=== PATIENT | male | born 1980 | race Two or more races ===

== ENCOUNTER 2020-12-27 10:14 | Emergency (ER) | payer MEDICAID, OTHER ==
[~2020-12-27] VITALS: Ht 152.4 cm; Wt 83.9 kg
[2020-12-27 10:14] VITALS: BP 139/85
[2020-12-27] MEDS ORDERED: ASPirin 81 mg TAB PO ONE (10:30)
== END 2020-12-27 11:00 | disposition left against medical advice (07) ==
LOC: ER 10:14
DX: R07.89 Other chest pain (principal); E11.9 Type 2 diabetes mellitus without complications; E78.5 Hyperlipidemia, unspecified; I10 Essential (primary) hypertension
CPT/HCPCS: 93005

== ENCOUNTER 2021-08-18 00:50 | Inpatient (IN) | payer MEDICAID ==
[~2021-08-18] VITALS: Ht 172.7 cm; Wt 96.0 kg
[2021-08-18] MEDS ORDERED: BENZ100C19 PO (05:59)
[2021-08-18] MEDS ORDERED: GUAI600T23 PO (05:59)
[2021-08-18] MEDS ORDERED: ALBUAER3 IN (05:59)
[2021-08-18] MEDS ORDERED: ZINC100T5 PO (05:59)
[2021-08-18] MEDS ORDERED: AZITHROMYCIN 250 MG TAB PO ONE (13:30)
[2021-08-18] MEDS ORDERED: cefTRIAXone 1GM/50ML D5W 50 ML IV ONE (13:30)
[2021-08-18] MEDS ORDERED: SODIUM CHLORIDE 0.9% 1,000 ML IV ONE ×2 (13:30→16:00)
[2021-08-18 15:02] LABS: Basophils # (auto) 0 10 ^3/uL (0-0.2); Basophils % (auto) 0.8 % (0.0-2.0); Eosinophils # (auto) 0 10 ^3/uL (0-0.8); Eosinophils % (auto) 0.5 % (0.0-7.0); Hematocrit 42.1 % (41.0-53.0); Hemoglobin 14.8 g/dL (13.5-17.5); Lymphocytes # (auto) 1.2 10 ^3/uL (0.4-5.4); Mean Corpuscular Hemoglobin 33.2 pg (28.0-32.0); Mean Corpuscular Volume 94.7 fL (80.0-100.0); Monocytes # (auto) 0.5 10 ^3/uL (0-1.3); Monocytes % (auto) 12.3 % (0.0-12.0); Neutrophils # (auto) 2.1 10 ^3/uL (1.6-8.6); Neutrophils % (auto) 54.4 % (37.0-80.0); Nucleated Red Blood Cells % 0.3 %; Red Blood Cells 4.45 10^6/uL (4.5-5.90); White Blood Cell 3.9 10^3/uL (4.4-10.8)
[2021-08-18 15:15] LABS: Calcium 8.2 mg/dL (8.5-10.1); Potassium 3.8 mmol/L (3.5-5.1)
[2021-08-18 15:20] LABS: BUN/Creatinine Ratio 16.5; Bilirubin, Total 0.4 mg/dL (0.2-1.0); Total Protein 7.3 g/dL (6.4-8.2)
[2021-08-18] MEDS ORDERED: MORPHINE SULFATE INJECTION 2 MG/ML SYRG IV PRN ×2 (16:00→17:00)
[2021-08-18] MEDS ORDERED: DOCUSATE CALCIUM 240 MG CAP PO PRN (16:00)
[2021-08-18] MEDS ORDERED: LABETALOL HCL 5 MG/ML 4ML SYRINGE IV PRN (16:00)
[2021-08-18] MEDS ORDERED: ONDANSETRON HCL 4 MG/2 ML VIAL IV PRN (16:00)
[2021-08-18] MEDS ORDERED: REMDESIVIR PER PHARMACY 0 ML IV SCH (16:00)
[2021-08-18] MEDS ORDERED: DEXTROSE (50%) 50ML SYRG IV PRN (16:00)
[2021-08-18] MEDS ORDERED: NITROGLYCERIN 0.4 MG SL TAB SL PRN (17:00)
[2021-08-18] MEDS ORDERED: REMDESIVIR 200 MG in NS 210ml LOADING DOSE ADULT IV ONE (18:00)
[2021-08-18] MEDS: ACCU-CHEK COMFORT CURVE STRIP VI SCH ×3 (18:33→23:48)
[2021-08-18] MEDS: InsuLIN REG 1unit/0.01ml Soln (100units/ml) SC SCH ×2 (18:33→20:04)
[2021-08-18] MEDS: CHOLECALCIFEROL (VITD3) 2,000 UNIT CAP/TAB PO SCH (18:34)
[2021-08-18] MEDS: DexAMETHasone SOD PHOS 10MG/1ML VIAL INJ IV SCH (18:34)
[2021-08-18] MEDS: ZINC SULFATE 220mg CAP or TAB PO SCH (18:34)
[2021-08-18] MEDS: ASCORBIC ACID 1,000 MG TAB PO SCH (18:36)
[2021-08-18] MEDS: BUDESONIDE (INHALATION) 180 MCG IH IN SCH (19:00)
[2021-08-18] MEDS: ALBUTEROL SULF HFA 90MCG INH 200DOSE IN PRN (19:52)
[2021-08-18 20:58] VITALS: BP 109/75
[2021-08-18] MEDS: ENOXAPARIN SOD 40 MG/0.4 ML SYRINGE SC SCH (21:58)
[2021-08-18 22:00] VITALS: BP 109/75
[2021-08-18] MEDS ORDERED: INSULIN LANTUS (GLARGINE) 1 /0.01ml (100units/ml) SC SCH (22:00)
[2021-08-18] MEDS ORDERED: METF-372 PO (22:18)
[2021-08-18] MEDS ORDERED: LOSA-69 PO (22:18)
[2021-08-19] MEDS: InsuLIN REG 1unit/0.01ml Soln (100units/ml) SC SCH ×6 (00:03→20:14)
[2021-08-19] MEDS: ACCU-CHEK COMFORT CURVE STRIP VI SCH ×5 (04:42→20:07)
[2021-08-19 05:00] VITALS: BP 107/81
[2021-08-19] MEDS: BUDESONIDE (INHALATION) 180 MCG IH IN SCH ×2 (07:40→19:56)
[2021-08-19] MEDS: ALBUTEROL SULF HFA 90MCG INH 200DOSE IN PRN ×2 (07:40→19:56)
[2021-08-19 07:52] LABS: Hemoglobin 14.5 g/dL (13.5-17.5)
[2021-08-19 07:58] LABS: Hematocrit 42.3 % (41.0-53.0); Mean Corpuscular Hemoglobin 32.8 pg (28.0-32.0); Mean Corpuscular Hgb Conc. 34.3 g/dL (32.0-36.0); Mean Corpuscular Volume 95.5 fL (80.0-100.0); Red Blood Cells 4.43 10^6/uL (4.5-5.90); Red Cell Distribution Width 13.1 % (11.8-14.3)
[2021-08-19 08:10] LABS: Albumin 2.8 g/dL (3.4-5.0); Calcium 8.6 mg/dL (8.5-10.1); Potassium 4.3 mmol/L (3.5-5.1)
[2021-08-19 08:21] LABS: BUN/Creatinine Ratio 14.9; Bilirubin, Total 0.4 mg/dL (0.2-1.0); CRP High Sensitivity 3.95 mg/dL (< 0.3); Magnesium 2.4 mg/dL (1.6-2.6); Total Protein 6.4 g/dL (6.4-8.2)
[2021-08-19 08:46] LABS: Thyroid Stimulating Hormone 0.33 uIU/mL (0.358-3.74)
[2021-08-19 08:50] LABS: White Blood Cell 1.9 10^3/uL (4.4-10.8)
[2021-08-19 08:51] LABS: Basophils % (manual) 0 (0.0-2.0); Blast Cells 0; Eosinophils % (manual) 0 (0-7); Metamyelocytes % 0; Myelocytes % 0; Promyelocytes % 0; Reactive Lymphocytes 0
[2021-08-19 09:00] VITALS: BP 110/75
[2021-08-19] MEDS: DexAMETHasone SOD PHOS 10MG/1ML VIAL INJ IV SCH (10:28)
[2021-08-19] MEDS: ZINC SULFATE 220mg CAP or TAB PO SCH (10:29)
[2021-08-19] MEDS: CHOLECALCIFEROL (VITD3) 2,000 UNIT CAP/TAB PO SCH (10:29)
[2021-08-19] MEDS: ASCORBIC ACID 1,000 MG TAB PO SCH (10:29)
[2021-08-19] MEDS: PANTOPRAZOLE 40 MG TAB PO SCH (10:29)
[2021-08-19] MEDS: ENOXAPARIN SOD 40 MG/0.4 ML SYRINGE SC SCH ×2 (10:29→21:59)
[2021-08-19] MEDS: cefTRIAXone 1GM/50ML D5W 50 ML IV SCH (10:33)
[2021-08-19] MEDS: AZITHROMYCIN 500MG/ 250ML 250 ML IV SCH (10:33)
[2021-08-19] MEDS: INSULIN LANTUS (GLARGINE) 1 /0.01ml (100units/ml) SC SCH ×2 (11:26→21:59)
[2021-08-19 11:35] LABS: Band Neutrophils % (manual) 3; Lymphocytes % (manual) 26 (10.0-50.0); Monocytes % (manual) 13 (0-12)
[2021-08-19 12:00] LABS: Urine Bacteria NONE SEEN /hpf (None Seen); Urine Blood Negative /uL (Negative); Urine Mucus FEW (None Seen); Urine Specific Gravity 1.022 (1.001-1.035); Urine WBC 1 /hpf (0 - 3)
[2021-08-19] MEDS ORDERED: ERGOCALCIFEROL 50,000 UNIT(1.25MG) CAP PO SCH (12:00)
[2021-08-19 13:00] VITALS: BP 102/65
[2021-08-19] MEDS: REMDESIVIR 100mg 100 MG in SODIUM CHL 0.9% 230 ML IV SCH (15:16)
[2021-08-19 17:00] VITALS: BP 103/71
[2021-08-19 22:00] VITALS: BP 106/67
[2021-08-20] MEDS: ACCU-CHEK COMFORT CURVE STRIP VI SCH ×6 (00:38→21:02)
[2021-08-20] MEDS: InsuLIN REG 1unit/0.01ml Soln (100units/ml) SC SCH ×6 (00:40→21:03)
[2021-08-20] MEDS: ACETAMINOPHEN 500 MG TAB PO PRN ×2 (01:10→16:20)
[2021-08-20 05:00] VITALS: BP 102/68
[2021-08-20 07:20] LABS: Potassium 4.1 mmol/L (3.5-5.1)
[2021-08-20] MEDS: ALBUTEROL SULF HFA 90MCG INH 200DOSE IN PRN ×2 (07:25→20:58)
[2021-08-20] MEDS: BUDESONIDE (INHALATION) 180 MCG IH IN SCH ×2 (07:25→20:59)
[2021-08-20 07:30] LABS: Albumin 2.7 g/dL (3.4-5.0); Bilirubin, Total 0.4 mg/dL (0.2-1.0); Calcium 8.9 mg/dL (8.5-10.1); Total Protein 6.3 g/dL (6.4-8.2)
[2021-08-20] MEDS: cefTRIAXone 1GM/50ML D5W 50 ML IV SCH (08:41)
[2021-08-20 09:00] VITALS: BP 90/57
[2021-08-20] MEDS: DexAMETHasone SOD PHOS 10MG/1ML VIAL INJ IV SCH (09:30)
[2021-08-20] MEDS: CHOLECALCIFEROL (VITD3) 2,000 UNIT CAP/TAB PO SCH (09:30)
[2021-08-20] MEDS: ASCORBIC ACID 1,000 MG TAB PO SCH (09:30)
[2021-08-20] MEDS: AZITHROMYCIN 500MG/ 250ML 250 ML IV SCH (09:30)
[2021-08-20] MEDS: PANTOPRAZOLE 40 MG TAB PO SCH (09:30)
[2021-08-20] MEDS: ZINC SULFATE 220mg CAP or TAB PO SCH (09:31)
[2021-08-20] MEDS: ENOXAPARIN SOD 40 MG/0.4 ML SYRINGE SC SCH ×2 (09:48→21:39)
[2021-08-20 13:00] VITALS: BP 96/60
[2021-08-20] MEDS: REMDESIVIR 100mg 100 MG in SODIUM CHL 0.9% 230 ML IV SCH (14:32)
[2021-08-20 17:00] VITALS: BP 100/66
[2021-08-20] MEDS: INSULIN LANTUS (GLARGINE) 1 /0.01ml (100units/ml) SC SCH (21:23)
[2021-08-20 22:52] VITALS: BP 107/62
[2021-08-21] MEDS ORDERED: ACETAMINOPHEN 500 MG TAB PO PRN (02:15)
[2021-08-21] MEDS ORDERED: ONDANSETRON HCL 4 MG/2 ML VIAL ONE (02:15)
[2021-08-21] MEDS ORDERED: NITROGLYCERIN 0.4 MG SL TAB SL PRN (02:30)
[2021-08-21] MEDS ORDERED: ONDANSETRON HCL 4 MG/2 ML VIAL IV PRN (02:30)
[2021-08-21] MEDS ORDERED: DOCUSATE CALCIUM 240 MG CAP PO PRN (02:30)
[2021-08-21] MEDS ORDERED: DEXTROSE (50%) 50ML SYRG IV PRN (02:30)
[2021-08-21] MEDS ORDERED: MORPHINE SULFATE INJECTION 2 MG/ML SYRG IV PRN ×2 (02:30)
[2021-08-21] MEDS ORDERED: REMDESIVIR PER PHARMACY 0 ML IV SCH (02:30)
[2021-08-21] MEDS ORDERED: LABETALOL HCL 5 MG/ML 4ML SYRINGE IV PRN (02:30)
[2021-08-21] MEDS: ACCU-CHEK COMFORT CURVE STRIP VI SCH ×7 (04:07→23:51)
[2021-08-21] MEDS: InsuLIN REG 1unit/0.01ml Soln (100units/ml) SC SCH ×7 (04:12→23:52)
[2021-08-21 05:30] VITALS: BP 93/52
[2021-08-21] MEDS: ALBUTEROL SULF HFA 90MCG INH 200DOSE IN PRN ×2 (07:11→22:41)
[2021-08-21] MEDS: BUDESONIDE (INHALATION) 180 MCG IH IN SCH ×2 (07:11→22:41)
[2021-08-21 09:00] VITALS: BP 93/59
[2021-08-21] MEDS: cefTRIAXone 1GM/50ML D5W 50 ML IV SCH (09:31)
[2021-08-21] MEDS: DexAMETHasone SOD PHOS 10MG/1ML VIAL INJ IV SCH (09:32)
[2021-08-21] MEDS: AZITHROMYCIN 500MG/ 250ML 250 ML IV SCH (09:32)
[2021-08-21] MEDS: ZINC SULFATE 220mg CAP or TAB PO SCH (09:33)
[2021-08-21] MEDS: ASCORBIC ACID 1,000 MG TAB PO SCH (09:34)
[2021-08-21] MEDS: PANTOPRAZOLE 40 MG TAB PO SCH (09:34)
[2021-08-21] MEDS: CHOLECALCIFEROL (VITD3) 2,000 UNIT CAP/TAB PO SCH (09:35)
[2021-08-21] MEDS: ENOXAPARIN SOD 40 MG/0.4 ML SYRINGE SC SCH ×2 (09:35→22:05)
[2021-08-21 13:00] VITALS: BP 105/65
[2021-08-21] MEDS: REMDESIVIR 100mg 100 MG in SODIUM CHL 0.9% 230 ML IV SCH (15:38)
[2021-08-21 17:00] VITALS: BP 107/61
[2021-08-21] MEDS: INSULIN LANTUS (GLARGINE) 1 /0.01ml (100units/ml) SC SCH (22:07)
[2021-08-21 23:27] VITALS: BP 100/56
[2021-08-22] MEDS: ACCU-CHEK COMFORT CURVE STRIP VI SCH ×5 (04:16→20:39)
[2021-08-22] MEDS: InsuLIN REG 1unit/0.01ml Soln (100units/ml) SC SCH ×5 (04:17→20:44)
[2021-08-22 05:20] VITALS: BP 91/62
[2021-08-22 07:22] LABS: Albumin 2.7 g/dL (3.4-5.0); Calcium 8.5 mg/dL (8.5-10.1); Potassium 3.8 mmol/L (3.5-5.1)
[2021-08-22 07:24] LABS: BUN/Creatinine Ratio 23.8
[2021-08-22 07:27] LABS: Basophils # (auto) 0 10 ^3/uL (0-0.2); Basophils % (auto) 0.4 % (0.0-2.0); Bilirubin, Total 0.4 mg/dL (0.2-1.0); Eosinophils # (auto) 0 10 ^3/uL (0-0.8); Eosinophils % (auto) 0.5 % (0.0-7.0); Hematocrit 39.9 % (41.0-53.0); Lymphocytes # (auto) 1.8 10 ^3/uL (0.4-5.4); Lymphocytes % (auto) 29.3 % (10.0-50.0); Mean Corpuscular Hemoglobin 33.2 pg (28.0-32.0); Mean Corpuscular Hgb Conc. 35.2 g/dL (32.0-36.0); Mean Corpuscular Volume 94.4 fL (80.0-100.0); Monocytes # (auto) 0.9 10 ^3/uL (0-1.3); Monocytes % (auto) 14.7 % (0.0-12.0); Neutrophils # (auto) 3.3 10 ^3/uL (1.6-8.6); Neutrophils % (auto) 55.1 % (37.0-80.0); Nucleated Red Blood Cells % 0.1 %; Red Blood Cells 4.23 10^6/uL (4.5-5.90); Red Cell Distribution Width 12.9 % (11.8-14.3); White Blood Cell 6.1 10^3/uL (4.4-10.8)
[2021-08-22] MEDS: BUDESONIDE (INHALATION) 180 MCG IH IN SCH ×2 (07:29→23:20)
[2021-08-22] MEDS: ALBUTEROL SULF HFA 90MCG INH 200DOSE IN PRN ×2 (07:29→23:20)
[2021-08-22] MEDS: ZINC SULFATE 220mg CAP or TAB PO SCH (08:51)
[2021-08-22] MEDS: cefTRIAXone 1GM/50ML D5W 50 ML IV SCH (08:51)
[2021-08-22] MEDS: CHOLECALCIFEROL (VITD3) 2,000 UNIT CAP/TAB PO SCH (08:51)
[2021-08-22] MEDS: ASCORBIC ACID 1,000 MG TAB PO SCH (08:51)
[2021-08-22] MEDS: PANTOPRAZOLE 40 MG TAB PO SCH (08:51)
[2021-08-22] MEDS: ENOXAPARIN SOD 40 MG/0.4 ML SYRINGE SC SCH ×2 (08:51→22:10)
[2021-08-22] MEDS: DexAMETHasone SOD PHOS 10MG/1ML VIAL INJ IV SCH (08:52)
[2021-08-22] MEDS: AZITHROMYCIN 500MG/ 250ML 250 ML IV SCH (08:52)
[2021-08-22 09:00] VITALS: BP 97/61
[2021-08-22 13:00] VITALS: BP 107/74
[2021-08-22] MEDS: REMDESIVIR 100mg 100 MG in SODIUM CHL 0.9% 230 ML IV SCH (15:17)
[2021-08-22 17:00] VITALS: BP 96/62
[2021-08-22 22:00] VITALS: BP 117/59
[2021-08-22] MEDS: INSULIN LANTUS (GLARGINE) 1 /0.01ml (100units/ml) SC SCH (22:06)
[2021-08-23] MEDS: ACCU-CHEK COMFORT CURVE STRIP VI SCH ×4 (00:28→12:26)
[2021-08-23] MEDS: InsuLIN REG 1unit/0.01ml Soln (100units/ml) SC SCH ×4 (00:30→12:08)
[2021-08-23 05:00] VITALS: BP 131/67
[2021-08-23] MEDS: ALBUTEROL SULF HFA 90MCG INH 200DOSE IN PRN (08:45)
[2021-08-23] MEDS: BUDESONIDE (INHALATION) 180 MCG IH IN SCH (08:45)
[2021-08-23 08:51] LABS: Basophils # (auto) 0 10 ^3/uL (0-0.2); Basophils % (auto) 0.2 % (0.0-2.0); Eosinophils # (auto) 0.1 10 ^3/uL (0-0.8); Eosinophils % (auto) 1.1 % (0.0-7.0); Hematocrit 38.9 % (41.0-53.0); Hemoglobin 13.8 g/dL (13.5-17.5); Lymphocytes # (auto) 2.3 10 ^3/uL (0.4-5.4); Lymphocytes % (auto) 27.4 % (10.0-50.0); Mean Corpuscular Hemoglobin 33.9 pg (28.0-32.0); Mean Corpuscular Hgb Conc. 35.5 g/dL (32.0-36.0); Mean Corpuscular Volume 95.5 fL (80.0-100.0); Monocytes # (auto) 1.2 10 ^3/uL (0-1.3); Monocytes % (auto) 14.7 % (0.0-12.0); Neutrophils # (auto) 4.7 10 ^3/uL (1.6-8.6); Neutrophils % (auto) 56.6 % (37.0-80.0); Nucleated Red Blood Cells % 0.1 %; Red Blood Cells 4.07 10^6/uL (4.5-5.90); Red Cell Distribution Width 13.3 % (11.8-14.3); White Blood Cell 8.3 10^3/uL (4.4-10.8)
[2021-08-23 09:00] VITALS: BP 105/59
[2021-08-23] MEDS: cefTRIAXone 1GM/50ML D5W 50 ML IV SCH (09:02)
[2021-08-23] MEDS: DexAMETHasone SOD PHOS 10MG/1ML VIAL INJ IV SCH (09:02)
[2021-08-23] MEDS: ASCORBIC ACID 1,000 MG TAB PO SCH (09:03)
[2021-08-23] MEDS: CHOLECALCIFEROL (VITD3) 2,000 UNIT CAP/TAB PO SCH (09:03)
[2021-08-23] MEDS: PANTOPRAZOLE 40 MG TAB PO SCH (09:03)
[2021-08-23] MEDS: AZITHROMYCIN 500MG/ 250ML 250 ML IV SCH (09:03)
[2021-08-23] MEDS: ZINC SULFATE 220mg CAP or TAB PO SCH (09:03)
[2021-08-23] MEDS: ENOXAPARIN SOD 40 MG/0.4 ML SYRINGE SC SCH (09:04)
[2021-08-23 09:08] LABS: Potassium 4.1 mmol/L (3.5-5.1)
[2021-08-23 09:14] LABS: BUN/Creatinine Ratio 26.5; Calcium 8.5 mg/dL (8.5-10.1)
[2021-08-23] MEDS ORDERED: ASCO10003 PO (11:18)
[2021-08-23] MEDS ORDERED: ERGO1CAP23 PO (11:18)
[2021-08-23 12:26] VITALS: BP 105/59
== END 2021-08-23 17:30 | disposition home or self-care (01) | DRG 137 ==
LOC: ER 00:50 → TELE 16:52 → TELE-EAST 20:35 → UNDODISIN 08-20 22:06
PROVIDERS: ADMIT Family Medicine; ATTEND Internal Medicine Pulmonary Disease
PROC: XW033E5 Introduction of Remdesivir Anti-infective into Peripheral Vein, Percutaneous Approach, New Technology Group 5 (ICD-10-PCS; principal; 2021-08-18)
DX: U07.1 COVID-19 (principal); J96.01 Acute respiratory failure with hypoxia; J12.82 Pneumonia due to coronavirus disease 2019; E87.1 Hypo-osmolality and hyponatremia; D68.59 Other primary thrombophilia; E11.65 Type 2 diabetes mellitus with hyperglycemia; E55.9 Vitamin D deficiency, unspecified; D72.819 Decreased white blood cell count, unspecified; E86.0 Dehydration; E78.5 Hyperlipidemia, unspecified; R79.89 Other specified abnormal findings of blood chemistry; I10 Essential (primary) hypertension; Z83.3 Family history of diabetes mellitus
CPT/HCPCS: 36415; 71045; 80048; 80053; 81001; 82306; 82728; 82962; 83036; 83605; 83615; 83735; 84443; 84484; 85007; 85025; 85027; 85379; 86141; 87040; 87426; 87804; 93005; 94640; 96361; 96365; G0378; J0696; J1100; J1815; J2405

== ENCOUNTER 2022-10-13 23:32 | Emergency (ER) | payer MEDICAID ==
[~2022-10-13] VITALS: Ht 170.2 cm; Wt 88.1 kg
[~2022-10-13 23:32] MED LIST: ALBUAER3 IN; ASCO10003 PO; BENZ100C19 PO; ERGO1CAP23 PO; GUAI600T23 PO; LOSA-69 PO; METF-372 PO; ZINC100T5 PO
[2022-10-13] MEDS ORDERED: ONDANSETRON ODT 4 MG TAB PO ONE (23:45)
[2022-10-13] MEDS ORDERED: ACETAMINOPHEN 500 MG TAB PO ONE (23:45)
[2022-10-13 23:48] VITALS: BP 130/81
[2022-10-14 00:52] LABS: Urine Bacteria NONE SEEN /hpf (None Seen); Urine Blood Negative /uL (Negative); Urine WBC 1 /hpf (0 - 3)
[2022-10-14] MEDS ORDERED: MECL1TAB42 PO (01:29)
[2022-10-14] MEDS ORDERED: ONDA-144 PO (01:29)
== END 2022-10-14 04:01 | disposition home or self-care (01) ==
LOC: ER 23:32
DX: A05.9 Bacterial foodborne intoxication, unspecified (principal); E11.9 Type 2 diabetes mellitus without complications; E78.5 Hyperlipidemia, unspecified; I10 Essential (primary) hypertension; Z20.822 Contact with and (suspected) exposure to COVID-19
CPT/HCPCS: 36415; 81001; 82962; 87426; 87804; 99283; Q0162

== ENCOUNTER 2024-11-27 18:45 | Emergency (ER) | payer MEDICAID, OTHER ==
[~2024-11-27] VITALS: Ht 170.2 cm; Wt 102.6 kg
[~2024-11-27 18:45] MED LIST changes: -GUAI600T23 PO; +GUAI600T78 PO; +LOSA-534 PO; -LOSA-69 PO; +MECL1TAB42 PO; +ONDA-144 PO
--- NOTE | 2024-11-27 18:57 | ECG ---
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
[2024-11-27 19:18] LABS: Urine Bacteria None Seen /hpf (None Seen)
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
[2024-11-27 19:45] LABS: Urine Blood 2+ /uL (Negative); Urine Clarity Clear (Clear); Urine Color Yellow (Yellow); Urine Mucus FEW (None Seen); Urine Protein, UAD 3+ (Negative); Urine Specific Gravity 1.028 (1.001-1.035); Urine Squamous Epithelial Cell FEW /hpf (<5); Urine Urobilinogen Normal (Negative); Urine WBC 11 /HPF (0-3)
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
[2024-11-27] MEDS: HYDROcodone-ACET 5/325MG TAB PO ONE (20:23)
[2024-11-27] MEDS: KETOROLAC TROMETH 60MG/2ML VIAL IM ONE (20:24)
[2024-11-27 20:25] VITALS: BP 128/81; PULSE 98; RESP 16; TEMP 97.7; O2SAT 98
[2024-11-27] MEDS ORDERED: METH4PAK PO (21:50)
[2024-11-27] MEDS ORDERED: TIZA-142 PO (21:50)
== END 2024-11-27 21:58 | disposition home or self-care (01) ==
LOC: ER 18:45
DX: S13.4XXA Sprain of ligaments of cervical spine, initial encounter (principal); S20.219A Contusion of unspecified front wall of thorax, initial encounter; E11.9 Type 2 diabetes mellitus without complications; E78.5 Hyperlipidemia, unspecified; I10 Essential (primary) hypertension; V49.88XA Car occupant (driver) (passenger) injured in other specified transport accidents, initial encounter; Y93.89 Activity, other specified; Y92.89 Other specified places as the place of occurrence of the external cause; Y99.8 Other external cause status
CPT/HCPCS: 71250; 72125; 81001; 93005; 96372; 99285; J1885

== ENCOUNTER 2025-06-22 12:15 | Emergency (ER) | payer MEDICAID, OTHER ==
[~2025-06-22] VITALS: Ht 170.2 cm; Wt 100.6 kg
[2025-06-22 12:17] VITALS: BP 146/92; PULSE 69; RESP 16; TEMP 98.3; O2SAT 97
[2025-06-22] MEDS: NEOMYCIN-BACITRACIN-POLYM UNITDOSE PKG TOP OINT TOP ONE (13:00)
[2025-06-22] MEDS: LIDOCAINE 1% HCL (LOCAL ANESTH.) INJ 20ML MDV ID ONE (13:10)
--- NOTE | 2025-06-22 13:21 | ED.PDOC ---
HPI Comments 44-year-old male who is Greenlandic-speaking presents to the ER with a chief complaint of a 3 cm laceration. 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 Denies any other symptoms at this time. Chief Complaint: Laceration Time Seen by MD: 13:00 Primary Care Provider: TAYAL Reviewed Notes: Nurses Notes, Medications, Allergies Allergies: Coded Allergies: NO KNOWN ALLERGIES (Unverified , 12/27/20) Home Meds Active Scripts Acetaminophen (Acetaminophen) 500 Mg Tab, 500 MG PO Q6HP PRN for 5 Days, #20 TAB 0 Refills Prov:ROMÁN BIRD CUP TRIMMING MACHINE OPERATOR 06/22/25 Cephalexin Monohydrate (Cephalexin) 500 Mg Tab, 1 TAB PO QID for 5 Days, #20 TAB 0 Refills Prov:ROMÁN BIRD CUP TRIMMING MACHINE OPERATOR 06/22/25 Meclizine HCl (Meclizine 25) 25 Mg Tab, 25 MG PO Q8HP PRN, #15 TAB Prov:JEFF SUAREZ PAC 10/14/22 Ondansetron (Zofran) 4 Mg Tab, 1 TAB PO Q6HR, #20 TAB Prov:JEFF SUAREZ PAC 10/14/22 Ascorbic Acid (Gnp Vitamin C W/Fatou Hips) 1,000 Mg Tab, 1000 MG PO DAILY for 30 Days, #30 TAB Prov:SHREE TRACEY MD 08/23/21 Ergocalciferol (VITAMIN D 47596 UNIT) 50,[place], [address] UNIT PO Q7D for 30 Days, #30 CAP Prov:SHREE TRACEY MD 08/23/21 Zinc Gluconate (ZINC) 100 Mg Tab, 50 MG PO QDAC PRN for 15 Days, #15 TAB 0 Refills Prov:BRANNON JORDAN 08/18/21 Albuterol Sulfate (VENTOLIN I) 90 Mcg Ih, 90 MCG IN QID PRN, #1 INH 0 Refills Prov:BRANNON JORDAN 08/18/21 Benzonatate (Tessalon Perles) 100 Mg Cap, 100 MG PO TID PRN for 5 Days, #15 CAP 0 Refills Prov:BRANNON JORDAN 08/18/21 Guaifenesin (Mucinex) 600 Mg Tab, 600 MG PO TID for 5 Days, #15 TAB Prov:BRANNON JORDAN 08/18/21 Reported Medications Losartan Potassium (Losartan Potassium) 50 Mg Tab, 1 TAB PO DAILY 08/18/21 Metformin Hydrochloride (Metformin Hcl) 1,000 Mg Tab, 1 TAB PO BID 08/18/21 Information Source: Patient Mode of Arrival: Ambulatory Severity: Moderate Severity of Laceration: Controlled Bleeding Complexity: Simple Timing: Minutes Prehospital treatment: None Laceration Location: Nose (Above) Mechanism: Metal (fell) Last Tetanus: Unknown Laceration Length (cm): 3 Skin Type: Linear Depth of Injury: Skin Tendon Injury: 0% Tender: Moderate Discharge: Clear Associated Signs and Symptoms: None Past Medical History PAST MEDICAL HISTORY: DM, High Lipids, HTN Surgical History: Denies all surgeries Family History Family History: Reviewed,noncontributory to illness, Family hx of DM Social History Smoker: Non-Smoker Alcohol: Denies ETOH Use Drugs: Denies Drug Use Lives In: Home Constitutional: denies: chills, diaphoresis, fatigue, fever, malaise, sweats, weakness, others EENTM: denies: blurred vision, double vision, ear bleeding, ear discharge, ear drainage, ear pain, ear ringing, eye pain, eye redness, hearing loss, mouth pain, mouth swelling, nasal discharge, nose bleeding, nose congestion, nose pain, photophobia, tearing, throat pain, throat swelling, voice changes, others Respiratory: denies: cough, hemoptysis, orthopnea, SOB at rest, shortness of breath, SOB with excertion, stridor, wheezing, others Cardiovascular: denies: chest pain, dizzy spells, diaphoresis, Dyspnea on exertion, edema, irregular heart beat, left arm pain, lightheadedness, palpitations, PND, syncope, others Gastrointestinal: denies: abdomen distended, abdominal pain, blood streaked bowels, constipated, diarrhea, dysphagia, difficulty swallowing, hematemesis, melena, nausea, poor appetite, poor fluid intake, rectal bleeding, rectal pain, vomiting, others Genitourinary: denies: burning, dysuria, flank pain, frequency, hematuria, incontinence, penile discharge, penile sore, pain, testicle pain, testicle swelling, urgency, others Neurological: denies: dizziness, fainting, headache, left sided numbness, left sided weakness, numbness, paresthesia, pre-existing deficit, right sided numbness, right sided weakness, seizure, speech problems, tingling, tremors, weakness, others Musculoskeletal: denies: back pain, gout, joint pain, joint swelling, muscle pain, muscle stiffness, neck pain, others Integumetry: reports: others (Laceration to the right lateral glabella radiating to the root); denies: bruises, change in color, change in hair/nails, dryness, laceration, lesions, lumps, rash, wounds Allergic/Immunocompromised: denies: Difficulty Healing, Frequent Infections, Hives, Itching, others Hematologic/Lymphatic: denies: anemia, blood clots, easy bleeding, easy bruising, swollen glands, others Endocrine: denies: excessive hunger, excessive sweating, excessive thirst, excessive urination, flushing, intolerance to cold, intolerance to heat, unexplained weight gain, unexplained weight loss, others Psychiatric: denies: anxiety, bipolar disorder, depression, hopeless, panic disorder, schizophrenia, sleepless, suicidal, others All Other Systems: Reviewed and Negative Physical Exam General Appearance: No Apparent Distress, Normal HEENT: Normal ENT Inspection, Pharynx Normal, TMs Normal Neck: Full Range of Motion, Non-Tender, Normal, Normal Inspection Respiratory: Chest Non-Tender, Lungs Clear, No Accessory Muscle Use, No Re spiratory Distress, Normal Breath Sounds Cardiovascular: No Edema, No JVD, No Murmur, No Gallop, Normal Peripheral Pulses, Regular Rate/Rhythm Breast Exam: Deferred Gastrointestinal: No Organomegaly, Non Tender, No Pulsatile Mass, Normal Bowel Sounds, Soft Genitalia: Deferred Pelvic: Deferred Rectal: Deferred Extremities: No calf tenderness, Normal capillary refill, Normal inspection, Normal range of motion, Non-tender, No pedal edema Musculoskeletal : Apperance: Normal Neurologic: Alert, senior project architect II-XII nml as Tested, No Motor Deficits, Normal Affect, Normal Mood, No Sensory Deficits Cerebellar Function: Normal Reflexes: Normal Skin: Dry, Normal Color, Warm Lymphatic: No Adenopathy Was a procedure done? Was a procedure done?: Yes Sedation Sedation?: No Laceration Repair : Location Right lateral glabella radiating to the roof of the nose Length 3cm Anesthetic: Lidocaine Laceration Repair Prep: Manual Scrub Laceration Repair Wound Comple: epidermis/dermis repair Informed consent obtained: Yes Risks, benefits, and alternati: Yes Differential diagnosis Generic Laceration: Fracture X-Ray, Labs, Meds, VS Vital Signs Date Time Temp Pulse Resp B/P (MAP) Pulse Ox O2 Delivery O2 Flow Rate FiO2 06/22/25 12:17 98.3 69 16 146/92 97 98.3 X-Ray, Labs, Meds, VS Comment 44-year-old male who is Green[place]ic-speaking presents to the ER with a chief complaint of a laceration to the right lateral glabella to the root, 3 cm laceration. Patient arrives alert and oriented, ABC's intact, afebrile, vital signs stable, saturating well in room air Clean wound, wound dressing, lack tree, sterile gloves, disposable Chux, 4 x 4, normal saline bottle Labs in the ED showed (pertinent+ and then pertinent-) Patient was given: Lidocaine 1%, neomycin. Tolerated medications with no adve rse reaction. The skin edges of the laceration were infiltrated with 1% lidocaine The skin surrounding the laceration was scrubbed with Betadine soaked sterile gauze The laceration was irrigated under high-pressure with a 60 mL syringe A total of 1L sterile water was used. Including diluted Betadine solution The laceration was prepped in sterile fashion with sterile drapes On examination under direct light, there was no foreign body seen The laceration was repaired in simple interrupted technique After repair, the laceration was centimeters in length. There was no continuing bleeding on repair. There were no complications related to repair Education and follow-up instructions provided Wound check in 2 days Return sooner for signs of infection such as fevers, increased pain, redness, green, yellow discharge, or any concerns Keep wound dry for 24 to 48 hours; dry dressing may be changed Protect from sunlight and keep area clean and dry. Use soap and water if it gets dirty High risk of possible scarring and education provided on ways to minimize scarring after wound heals Also provided education on possible complications post procedure including wound dehiscence, infection, etc. Additional MDM Review of External, Non-ED records: External records reviewed. Discussion with independent historian (EMS, family) history obtained from the patient/parents (if applicable) at bedside Chronic conditions affecting care: None Social determinants of health affecting care: None Consideration of admission (observation or admission): I considered escalation of care to admission for this patient, however given the reassuring workup, the patient is safe for outpatient management. Discussion with the Radiology: No Tests considered but not performed: Prescription medication considered but not given: 12 lead EKG interpretation: Time of 1ST Reevaluation: 13:30 Reevaluation 1ST: Unchanged Patient Education/Counseling: Diagnosis, Treatment, Prognosis Family Education/Counseling: No Family Present Departure 1 Departure Time of Disposition: 14:32 Impression: Primary Impression: Facial laceration Qualified Codes: S01.81XA - Laceration without foreign body of other part of head, initial encounter Additional Impression: Blunt trauma of face Qualified Codes: S09.93XA - Unspecified injury of face, initial encounter Disposition: HOME / SELF CARE / HOMELESS Condition: Fair e-Prescriptions Acetaminophen (Acetaminophen) 500 Mg Tab 500 MG PO Q6HP PRN for 5 Days, #20 TAB 0 Refills Prov: ROMÁN BIRD CUP TRIMMING MACHINE OPERATOR 06/22/25 Cephalexin Monohydrate (Cephalexin) 500 Mg Tab 1 TAB PO QID for 5 Days, #20 TAB 0 Refills Prov: ROMÁN BIRD CUP TRIMMING MACHINE OPERATOR 06/22/25 Critical Care Note Critical Care Time?: No Stability Stability form required: No Heart Score Heart Score: Heart Score Response (Comments) Value History N/A 0 EKG N/A 0 Age N/A 0 Risk Factors N/A 0 Troponin N/A 0 Total 0 I personally scribed for ROMÁN BIRD NP ([email or web address]) on 06/22/25 at 13:21. Electronically submitted by Kendall Leong ([email or web address]). ROMÁN BIRD CUP TRIMMING MACHINE OPERATOR Jun 22, 2025 13:21
--- NOTE | 2025-06-22 14:27 | DVH ---
CT MAXILLOFACIAL WITHOUT INDICATION: R/o fracture EXAM DATE: 06/22/2025 01:20 PM COMPARISON: None RADIATION DOSE: CTDIvol: 66.97 mGy, DLP: 1346.89 mGy*cm PROCEDURE: Using the CT scanner, contiguous noncontrast scans were obtained from above the orbital ri ms to below the mandible. Coronal and sagittal reformatted images were then generated. All CT scans at this medical facility are performed using dose modulation techniques as appropriate t o a performed exam including the following: Automated exposure control was utilized; adjustment of th e MA and/or KV according to patient size; and use of iterative reconstruction technique. FINDINGS: Age indeterminate depressed fracture of the left orbit floor. The facial bones, including t he orbits and paranasal sinuses are otherwise intact without evidence of fracture. The paranasal sin uses, mastoid air cells and middle ear cavities are normally aerated. The orbital contents are normal . The soft tissues of the face are unremarkable. IMPRESSION: Age indeterminate depressed fracture of the left orbit floor.
[2025-06-22] MEDS ORDERED: ACET500T58 PO (14:33)
[2025-06-22] MEDS ORDERED: CEPH500T PO (14:33)
== END 2025-06-22 14:57 | disposition home or self-care (01) ==
LOC: ER 12:15
DX: S01.21XA Laceration without foreign body of nose, initial encounter (principal); X58.XXXA Exposure to other specified factors, initial encounter; Y93.89 Activity, other specified; Y92.89 Other specified places as the place of occurrence of the external cause; Y99.0 Civilian activity done for income or pay; I10 Essential (primary) hypertension; E11.9 Type 2 diabetes mellitus without complications; Z79.899 Other long term (current) drug therapy
CPT/HCPCS: 12013; 70486; 99284; A4649; J2003

== ENCOUNTER 2025-06-25 16:05 | Emergency (ER) | payer MEDICAID ==
[~2025-06-25] VITALS: Ht 170.2 cm; Wt 100.0 kg
[~2025-06-25 16:05] MED LIST changes: +ACET500T58 PO; +CEPH500T PO
[2025-06-25 16:12] VITALS: BP 133/77; PULSE 85; RESP 16; TEMP 98.1; O2SAT 96
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
--- NOTE | 2025-06-25 17:32 | DVH ---
CLINICAL HISTORY: HEAD INJURY X3 DAYS AGO TECHNIQUE: Helical scanning was performed of the head from the skull base to the vertex. Multiplanar reconstructions were performed. This exam was performed according to our departmental dose optimizat ion program. Up-to-date CT equipment and radiation dose reduction techniques are utilized as appropri ate. CTDI 64 DLP 1128 COMPARISON: None FINDINGS: There is no evidence for acute intracranial hemorrhage, acute ischemic changes, mass, mass effect, or extra-axial fluid collection. There is no hydrocephalus or midline shift. There is no effacement of the cerebral sulci and basal subarachnoid cisterns. The mendoza-white matter differentiation is well gatito ntained. The imaged paranasal sinuses are clear. IMPRESSION: NO ACUTE INTRACRANIAL ABNORMALITY SEEN.
[2025-06-25] MEDS ORDERED: IBUP-1456 PO (17:43)
== END 2025-06-25 17:48 | disposition home or self-care (01) ==
LOC: ER 16:05
DX: S09.8XXA Other specified injuries of head, initial encounter (principal); G44.319 Acute post-traumatic headache, not intractable; I10 Essential (primary) hypertension; E11.9 Type 2 diabetes mellitus without complications; E78.5 Hyperlipidemia, unspecified; Z79.84 Long term (current) use of oral hypoglycemic drugs; Z79.899 Other long term (current) drug therapy; W22.8XXA Striking against or struck by other objects, initial encounter; Y93.89 Activity, other specified; Y92.89 Other specified places as the place of occurrence of the external cause; Y99.8 Other external cause status
CPT/HCPCS: 70450

== ENCOUNTER 2025-07-10 22:07 | Emergency (ER) | payer MEDICAID ==
[~2025-07-10] VITALS: Ht 170.2 cm; Wt 100.2 kg
[~2025-07-10 22:07] MED LIST changes: +IBUP-1456 PO
[2025-07-10 22:29] VITALS: BP 122/82; PULSE 96; RESP 19; TEMP 97.4; O2SAT 95
--- NOTE | 2025-07-11 00:21 | ED.PDOC ---
Eye-HPI HPI Comments 44-year-old male presents to the ED chief complaint nosebleeds and suture removal. Patient was seen here on the for facial trauma had sutures placed also had a CT maxillofacial which showed age indeterminate orbital floor fracture. Patient states since, has been having intermittent nosebleeds and headaches. Notes has not follow up with his PCP or specialist. Denies any new trauma, fever, chills, nausea, vomiting, vision changes or any other concerns. Chief Complaint: Flu like Time Seen by MD: 22:15 Primary Care Provider: ESSENCE Reviewed Notes: Nurses Notes, Medications, Allergies Allergies: Coded Allergies: NO KNOWN ALLERGIES (Unverified , 12/27/20) Home Meds Active Scripts Amoxicillin & Pot Clavulanate (AUGMENTIN TABLET) 875 Mg Tb, 875 MG PO BID for 10 Days, #20 TAB Prov:NAWAF BERMUDEZ LUMBER PILER OPERATOR 07/11/25 Ibuprofen (Ibuprofen) 800 Mg Tab, 1 TAB PO TID, #30 TAB Prov:JACK GONCALVES 06/25/25 Acetaminophen (Acetaminophen) 500 Mg Tab, 500 MG PO Q6HP PRN for 5 Days, #20 TAB 0 Refills Prov:ROMÁN BIRD MACHINE SAND MIXER 06/22/25 Cephalexin Monohydrate (Cephalexin) 500 Mg Tab, 1 TAB PO QID for 5 Days, #20 TAB 0 Refills Prov:ROMÁN BIRD MACHINE SAND MIXER 06/22/25 Meclizine HCl (Meclizine 25) 25 Mg Tab, 25 MG PO Q8HP PRN, #15 TAB Prov:JEFF SUAREZ PAC 10/14/22 Ondansetron (Zofran) 4 Mg Tab, 1 TAB PO Q6HR, #20 TAB Prov:JEFF SUAREZ PAC 10/14/22 Ascorbic Acid (Gnp Vitamin C W/Fatou Hips) 1,000 Mg Tab, 1000 MG PO DAILY for 30 Days, #30 TAB Prov:SHREE TRACEY MD 08/23/21 Ergocalciferol (VITAMIN D 81505 UNIT) 50,000 [place], [address] UNIT PO Q7D for 30 Days, #30 CAP Prov:SHREE TRACEY MD 08/23/21 Zinc Gluconate (ZINC) 100 Mg Tab, 50 MG PO QDAC PRN for 15 Days, #15 TAB 0 Refills Prov:BRANNON JORDAN 08/18/21 Albuterol Sulfate (VENTOLIN MDI) 90 Mcg Ih, 90 MCG IN QID PRN, #1 INH 0 Refills Prov:BRANNON JORDAN 08/18/21 Benzonatate (Tessalon Perles) 100 Mg Cap, 100 MG PO TID PRN for 5 Days, #15 CAP 0 Refills Prov:BRANNON JORDAN 08/18/21 Guaifenesin (Mucinex) 600 Mg Tab, 600 MG PO TID for 5 Days, #15 TAB Prov:BRANNON JORDAN 08/18/21 Reported Medications Losartan Potassium (Losartan Potassium) 50 Mg Tab, 1 TAB PO DAILY 08/18/21 Metformin Hydrochloride (Metformin Hcl) 1,000 Mg Tab, 1 TAB PO BID 08/18/21 Information Source: Patient Mode of Arrival: Ambulatory Past Medical History PAST MEDICAL HISTORY: DM, High Lipids, HTN Surgical History: Denies all surgeries Family History Family History: Reviewed,noncontributory to illness, Family hx of DM Social History Smoker: Non-Smoker Alcohol: Denies ETOH Use Drugs: Denies Drug Use Lives In: Home All Other Systems: Reviewed and Negative (see hpi) Physical Exam General Appearance: No Apparent Distress, Normal HEENT: Pharynx Normal, TMs Normal, Other (No noted nasal bleeding or posterior bleeding at this time) Neck: Full Range of Motion, Non-Tender, Normal, Normal Inspection Respiratory: Chest Non-Tender, Lungs Clear, No Accessory Muscle Use, No Respiratory Distress, Normal Breath Sounds Cardiovascular: No Edema, No JVD, No Murmur, No Gallop, Normal Peripheral Pulses, Regular Rate/Rhythm Breast Exam: Deferred Gastrointestinal: No Organomegaly, Non Tender, No Pulsatile Mass, Normal Bowel Sounds, Soft Genitalia: Deferred Pelvic: Deferred Rectal: Deferred Extremities: Normal capillary refill, Non-tender Musculoskeletal : Apperance: Normal Neurologic: Alert, No Motor Deficits, Normal Affect, Normal Mood, No Sensory Deficits Cerebellar Function: Normal Reflexes: NOT DONE Skin: Dry, Lacerations (Three sutures intact laceration with good approximation left nose labial fold), Normal Color, Warm Lymphatic: No Adenopathy Was a procedure done? Was a procedure done?: Yes Sedation Sedation?: No Informed consent obtained: Yes Foreign Body Removal Foreign body in: Skin Anesthetic: Nothing Prep: Saline Procedure: Removed Informed consent obtained: Yes Risks/benefits/alt described: Yes Notes Three sutures removed and intact wound with good approximation removed with suture removal kit EENT DIFF Eye: N/A Nose: Anterior Nasal Bleed, Posterior Nasal Bleed, Foreign Body, Hypertension, Coagulopathy X-Ray, Labs, Meds, VS Vital Signs Date Time Temp Pulse Resp B/P (MAP) Pulse Ox O2 Delivery O2 Flow Rate FiO2 07/10/25 22:29 97.4 96 19 122/82 95 97.4 07/10/25 22:29 Room Air X-Ray, Labs, Meds, VS Comment See procedure note. Patient advised to follow up with his PCP and referral for specialist regarding orbital floor fracture continued pain and intermittent nosebleeds. We will script prophylactically trial of antibiotics advised take medication as prescribed side effects discussed. Advised on ER return precautions such as any vision changes in the right eye uncontrolled bleeding or any concerning symptoms patient indicated understanding and agrees with discharge plan of care. Images Reviewed?: Images reviewed and evaluated by me Time of 1ST Reevaluation: 22:15 Reevaluation 1ST: Unchanged Time of 2ND Reevaluation: 00:27 Reevaluation 2ND: Improved Patient Education/Counseling: Diagnosis, Treatment, Need For Follow Up Family Education/Counseling: No Family Present SEPSIS Sepsis Screen Date sepsis recognized/suspect: Jul 10, 2025 Time Sepsis recognized/suspect: 2231 Recent Procedure: Yes On Antibiotic Therapy: No Respiratory Rate >20: No Heart Rate >90: No Temp<36 C (96.8 F) or >38.3 C: No SBP <90 or MAP <65 mmHG: No New Acute Mental Status Change: No Is the patient on CPAP, BIPAP,: No Vital Signs Date Time Temp Pulse Resp B/P (MAP) Pulse Ox O2 Delivery O2 Flow Rate FiO2 07/10/25 22:29 97.4 96 19 122/82 95 97.4 07/10/25 22:29 Room Air Departure 1 Departure Time of Disposition: 00:26 Impression: Primary Impression: Epistaxis Additional Impressions: Orbital floor (blow-out) closed fracture Visit for suture removal Disposition: 01 HOME / SELF CARE / HOMELESS Condition: Stable Additional Instructions: Follow up with your PCP for referral to maxillofacial surgeon. Follow up with Ophthalmology as well. Return to the ER for increasing bleeding, any sudden onset of vision changes, high fevers or any concerning symptoms. e-Prescriptions Amoxicillin & Pot Clavulanate (AUGMENTIN TABLET) 875 Mg Tb 875 MG PO BID for 10 Days, #20 TAB Prov: NAWAF BERMUDEZ 07/11/25 Discharged With: Self Critical Care Note Critical Care Time?: No Stability Stability form required: NAWAF Alcantara Jul 11, 2025 00:21
[2025-07-11] MEDS ORDERED: AUG875T PO (00:26)
== END 2025-07-11 00:38 | disposition home or self-care (01) ==
LOC: ER 22:07
DX: R04.0 Epistaxis (principal); S02.30XD Fracture of orbital floor, unspecified side, subsequent encounter for fracture with routine healing; I10 Essential (primary) hypertension; E11.9 Type 2 diabetes mellitus without complications; Z48.02 Encounter for removal of sutures; Z79.84 Long term (current) use of oral hypoglycemic drugs; Z79.899 Other long term (current) drug therapy; X58.XXXD Exposure to other specified factors, subsequent encounter